=== PATIENT | female | born 1985 | race Two or more races ===

== ENCOUNTER 2017-12-15 10:11 | Emergency (ER) | payer BC ==
[2017-12-15 11:54] VITALS: BP 109/65
--- NOTE | 2017-12-15 12:00 | UC ---
Throat Pain/Nasal Peter HPI - HPI Summary HPI Summary: nonprod cough, earache, sore throat for almost a week now. - otc meds not helping - decongestant - History of Current Complaint Chief Complaint: UCRespiratory Stated Complaint: ST/EAR/CONGESTION Time Seen by Provider: 12/15/17 11:57 Hx Obtained From: Patient Hx Last Menstrual Period: 11/20 Onset/Duration: Lasting Days Severity: Moderate Pain Intensity: 0 Cough: Nonproductive Associated Signs & Symptoms: Positive: Sinus Discomfort, Nasal Discharge Related History: Seasonal Allergies - Epiglottits Risk Factors Epiglottis Risk Factors: Negative - Allergies/Home Medications Allergies/Adverse Reactions: Allergies Allergy/AdvReac Type Severity Reaction Status Date / Time seasonal Allergy Congestion Uncoded 12/15/17 11:37 Home Medications: Home Medications Dm/Acetaminophen/Doxylamine [Vicks Nyquil Cold & Flu Liquid] 1 liq PO BEDTIME PRN 12/15/17 [History Confirmed 12/15/17] Eucalyptus/Menthol [Cough Drops] 1 laura MT SEE INSTRUCTIONS PRN 12/15/17 [ History Confirmed 12/15/17] Levocetirizine Dihydrochloride [Xyzal] 5 mg PO DAILY PRN 12/15/17 [History Confirmed 12/15/17] Nose [place] 2 spr BOTH NARES DAILY 12/15/17 [History Confirmed 12/15/17] Phenylephrine/Dm/Acetaminop/GG [Vicks Dayquil Severe Cold-Flu] 1 liq PO Q4H PRN 12/15/17 [History Confirmed 12/15/17] Pseudoephedrine TAB* [Sudafed TAB*] 30 mg PO Q12H PRN 12/15/17 [History Confirmed 12/15/17] busPIRone TAB* [Buspar TAB*] 7.5 mg PO BID 12/15/17 [History Confirmed 12/15/17] PMH/Surg Hx/FS Hx/Imm Hx Previously Healthy: Yes Psychological History: Anxiety - Surgical History Surgical History: None - Family History Known Family History: Positive: Hypertension - Social History Alcohol Use: None Substance Use Type: None Smoking Status (MU): Never Smoked Tobacco Review of Systems Constitutional: Fever Skin: Negative Eyes: Negative ENT: Sore Throat, Ear Ache, Nasal Discharge, Sinus Congestion Respiratory: Cough - nonprod Cardiovascular: Negative Gastrointestinal: Negative Genitourinary: Negative Motor: Negative Neurological: Negative Psychological: Negative Is Patient Immunocompromised?: No All Other Systems Reviewed And Are Negative: Yes Physical Exam Triage Information Reviewed: Yes Appearance: Ill-Appearing Vital Signs: Initial Vital Signs Temp 97.7 F 12/15/17 11:49 Pulse 70 12/15/17 11:49 Resp 18 12/15/17 11:49 BP 109/65 12/15/17 11:49 Pulse Ox 100 12/15/17 11:49 Vital Signs Reviewed: Yes Eye Exam: Normal ENT: Positive: Pharyngeal erythema, Nasal congestion, TM bulging - jocelin Respiratory Exam: Normal Cardiovascular Exam: Normal Neurological Exam: Normal Psychological Exam: Normal Skin Exam: Normal Throat Pain/Nasal Course/Dx - Course Course Of Treatment: take abx as directed - take with food to prevent GI upset - discussed use and common side effects of med. increase fluid intake daily while on abx to prevent dehydration. tylenol or ibuprofen as directed on bottle prn every 4-6 hours pain/fever. f/u if symtoms not resolving - Differential Dx/Diagnosis Differential Diagnosis/HQI/PQRI: Laryngitis, Pharyngitis, URI Provider Diagnoses: sinusitis Discharge - Discharge Plan Condition: Good Disposition: HOME Prescriptions: Amoxicillin PO (*) [Amoxicillin 875 MG (*)] 875 mg PO BID 10 Days #20 tab Benzonatate CAP* [Tessalon 100 MG CAP*] 100 mg PO TID PRN 10 Days #30 cap MDD three PRN Reason: Cough Patient Education Materials: Sinusitis (ED) Referrals: Chris Smith MD [Primary Care Provider] - 1 Week
== END 2017-12-15 12:20 | disposition home or self-care (01) ==
LOC: UCCORT 10:11
DX: J32.9 Chronic sinusitis, unspecified (principal); F41.9 Anxiety disorder, unspecified
CPT/HCPCS: 99212; G0463